=== PATIENT | female | born 1965 | race African-American/Black ===

== ENCOUNTER 2017-02-16 03:55 | Inpatient (IN) | payer OTHER ==
--- NOTE | 2017-02-02 13:10 | History & Physical Pre-Op ---
General Information and [facility] MD Statement: I have seen and personally examined HARLEY LOONEY and documented this H&P. The patient is a 51 year old F who presents with a patient stated chief complaint of slight low back pain radiating to her left calf and foot which she describes as a "strangulation/pressure" sensation. Source of Information: patient, old records Exam Limitations: no limitations History of Present Illness: Harley is a 51-year-old female who is complaining of slight low back pain radiating to her left calf and left foot which she describes as a "strangulation /pressure" sensation. She does admit to the low back pain at the end of a long day and radiating leg pain that is worse with ambulation. She denies any right sided symptoms. She describes the symptoms as a 7/10 in intensity. She does admit to intermittent numbness in her left leg with questionable weakness. She denies any known injury or precipitating event but admits that it did begin around July, and has worsened since October,. Harley has reported atrophy of her left calf as well as pressure with bowel movements. Harley has tried chiropractic treatment, muscle relaxants, Voltaren, Arcoxia, narcotics, and physical therapy which have given her minimal and temporary symptom relief. Her MRI shows a large left L5-S1 disc extrusion with left S1 nerve root impingement. Because of Harley's worsening symptoms and failure to respond to conservative measures, she wants nothing more to do with nonsurgical treatment. She has been consented for a left L5-S1 microdiscectomy with possible local bone fusion on 02/16/2017. Allergies/Medications Allergies: Coded Allergies: No Known Allergies (02/02/17) Compliance With Home Meds: FAIR Past History Medical History Blood Transfusion Hx: Yes (10/2015) Neurological: dizziness EENT: NONE Cardiovascular: hypertension Respiratory: NONE Gastrointestinal: NONE Hepatic: NONE Renal: NONE Musculoskeletal: chronic back pain, disk herniation, degen joint disease, osteoarthritis, sciatica, spinal stenosis Psychiatric: NONE Endocrine: vitamin D deficiency Blood Disorders: anemia Cancer(s): NONE HAT BODY SORTER/Reproductive: fibroid, ovarian cysts, menorrhagia Other Medical Hx: frequent vasovagal/syncopal episodes. Surgical History Pertinent Surgical History: s/p uterine release, s/p sebaceous cyst removal from shoulder Past Family/Social History Family History Relations & Conditions if any FATHER (Diabetes MellitusHypertension). . MOTHER (ASCVD/myocarditis). , Age 50-60. SISTER (Anemia). Psychosocial History Where Do You Live? 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 Review of Systems Review of Systems: Remarkable for the above complaints. Medication List Current Psychiatric Med(s): Iron sulfate 3 mL day (stopped 3 weeks ago) B complex daily Arcoxia daily, stopped 02/02/2017. Stool softener when necessary Exam & Diagnostic Data Physical Exam: Height: 5 feet 3 inches Weight: 140 pounds Physical Exam General Appearance Alert, Oriented X3, Cooperative, No Acute Distress Skin No Rashes, No Breakdown, No Significant Lesion HEENT Atraumatic, PERRLA, EOMI, Mucous Membr. moist/pink Neck Supple, No JVD, No thryomegaly, +2 Carotid Pulse wo Bruit Lymphatic Cervical nl Cardiovascular Regular Rate, Normal S1, Normal S2, No Murmurs Lungs Clear to Auscultation Abdomen Normal Bowel Sounds, Soft, No Tenderness, No Hepatospenomegaly, No Masses Neurological weak left gastroc muscle, absent left Achilles reflex, positive straight leg raise on the left, +3/5 left EHL/Ant tib strength, +4/5 left plantar flexion Extremities No Clubbing, No Cyanosis, No Edema Vascular Normal Pulses Last 24 Hrs of Labs/Armen: Laboratory Tests 02/16/17 1234: Urine Test NEGATIVE Assessment/Plan Assessment/Plan: Assessment: 1. Large left L5-S1 disc extrusion with nerve impingement. 2. Anemia 3. Hypertension history 4. Status post blood transfusion October, 5. Vitamin D deficiency 6. History of fibroids 7. Status post sebaceous cyst removal from the shoulder 8. Status post uterine release 9. Postoperative nausea from anesthesia 10. History of vasovagal/syncopal episodes Plan: Harley is scheduled to undergo a left L5-S1 microdiscectomy with possible local bone graft fusion on 02/16/2017. We discussed the procedure in full detail. We also discussed the risks of surgery not to exclude , paralysis, infection, bleeding, continued pain, failure of the surgery, need for future surgery, DVT, vascular injury, CSF leak, etc., and given these risks, she still wishes to proceed. We discussed the pre-and postoperative course, follow-up care and instructions, and anticipated recovery. We will consider placing a scopolamine patch on her preoperatively in anticipation of postoperative nausea. We have sent Harley for preoperative clearance from her general practitioner. Any changes in this patient's plan is based on her outpatient clinical presentation. As Ranked By This Provider Problem List: 1. Anemia 2. Hypertension 3. Vitamin D deficiency 4. Uterine fibroid Attending MD Review Statement Attending Statement Attending MD Statement: examined this patient, discuss w/resident/PA/WASH TUB MACHINE OPERATOR, agreed w/resident/PA/WASH TUB MACHINE OPERATOR, reviewed images
--- NOTE | 2017-02-02 13:13 | History & Physical Pre-Op ---
General Information and HPI MD Statement: I have seen and personally examined HARLEY LOONEY and documented this H&P. The patient is a 51 year old F who presented with a patient stated chief complaint of slight low back pain radiating to her left calf and foot, describing it as a "strangulation/pressure" sensation. Source of Information: patient, old records Exam Limitations: no limitations History of Present Illness: Harley is a 51-year-old female who is complaining of slight low back pain radiating to her left calf and left foot which she describes as a "strangulation /pressure" sensation. She states it began in July, and has worsened since October,. She denies any known injury or precipitating event. She does admit to occasional numbness in her left leg with questionable weakness. She states the pain is worsened at the end of a long day. She also states it is worse with walking, rating it a 7/10 in intensity. Harley has tried chiropractic treatment, muscle relaxants, Voltaren, Arcoxia, narcotics, and physical therapy which have given her temporary and minimal symptom relief. Harley's MRI shows a large left L5-S1 disc extrusion with potential for left S1 nerve root impingement. Because of Harley'sworsening symptoms and failure to respond to conservative measures, she wants nothing more to do with nonsurgical treatment. She has been consented for a left L5-S1 microdiscectomy with possible local bone fusion on 02/16/2017. Allergies/Medications Allergies: Coded Allergies: No Known Allergies (02/02/17) Home Med list Acetaminophen (Tylenol) 325 MG TABLET 650 MG PO Q4P PRN TEMP > 101.5 Bisacodyl (Bisac-Evac) 10 MG SUPP.RECT 10 MG TX DAILY NEEDED PRN CONSTIPATION Calcium Carbonate 500 MG CALCIUM (1,250 MG) TABLET 600 MG PO BID [facility] Cholecalciferol (Vitamin D3) 1,000 UNIT TABLET 1,000 IU PO DAILY [facility] Docusate Sodium 100 MG CAPSULE 100 MG PO TID CONSTIPATION Ferrous Sulfate 325 MG (65 MG IRON) TABLET.DR 325 MG PO DAILY ANEMIA Magnesium Hydroxide (Milk Of Magnesia) 400 MG/5 ML ORAL.SUSP 30 ML PO Q8P PRN CONSTIPATION Multivitamin (One Daily Multivitamin) 1 EACH TABLET 1 TAB PO DAILY [facility] Oxycodone HCl/Acetaminophen (Percocet 5-325 MG Tablet) 5 MG-325 MG TABLET 1 TAB PO Q4P PRN PAIN SCALE 1-3 (MILD) 1-2 TABS PO Q 4-6 HOURS PRN PAIN
[~2017-02-16] VITALS: Ht 162.6 cm; Wt 65.8 kg
--- NOTE | 2017-02-16 19:04 | Operative Report ---
Operative/Inv Procedure Report Surgery Date: 02/16/17 Name of Procedure: Laminectomies L5 and S1 with discectomy neural lysis L5-S1 nerve roots use of fluoroscopy. Pre-Operative Diagnosis: HNP L5-S1 left Post-Operative Diagnosis: Same Estimated Blood Loss: scant Surgeon/Corporate Counsel: ESA AMOR,FILI Brannon M.D. Anesthesia: general endotracheal tube Operative/Procedure Note Note: After adequate general anesthesia was achieved the patient was log rolled into the prone position with all bony prominences padded. The back was sterilely prepped and draped. An incision was made between L5 and S1 and carried over the left side of the L5-S1 interval. A metallic optic was placed and fluoroscopy was used to identify surgical level. The lateral aspect of the ligamentum flavum was elevated with the pituitary Jonathan and removed with the scalpel and Kerrisons. The S1 nerve root was flattened and erythematous. There is a large herniation displacing the shoulder of the L5 nerve root. A neuro lysis of the L5 and S1 nerve roots were performed to remove the adherent disc material. The disc was easily removed including herniation and several loose fragments within the disc space. The wound was irrigated the S1 nerve root was markedly erythematous Gelfoam was laid over the laminotomy site the wound was again irrigated. A closure was performed with absorbable suture and the lumbodorsal fascia. The subcutaneous tissue was approximated with absorbable suture and the skin was closed with nylon. Sterile dressings were then applied and the patient was transferred to the stretcher.
--- NOTE | 2017-02-16 19:55 | Patient Discharge Instructions ---
Discharge Instructions General Discharge Information You were seen/treated for: HNP L5-S1 left side You had these procedures: L5-S1 laminectomy Watch for these problems: see preprinted sheet Diet Continue normal diet: Yes Acute Coronary Syndrome Inclusion Criteria At DC or during hospital stay patient has or had the following: ACS DIAGNOSIS No Discharge Core Measures Meds if any: Prescribed or Continued at Discharge Meds if any: NOT Prescribed or Continued at Discharge Congestive Heart Failure Inclusion Criteria At DC or during hospital stay patient has or had the following: CHF DIAGNOSIS No Discharge Core Measures Meds if any: Prescribed or Continued at Discharge Meds if any: NOT Prescribed or Continued at Discharge Cerebrovascular accident Inclusion Criteria At DC or during hospital stay patient has or had the following: CVA/TIA Diagnosis No Discharge Core Measures Meds if any: Prescribed or Continued at Discharge Meds if any: NOT Prescribed or Continued at Discharge Venous thromboembolism Inclusion Criteria VTE Diagnosis No VTE Type NONE VTE Confirmed by (Test) NONE Discharge Core Measures - Per Current guidelines, there needs to be overlap - treatment for the first 5 days of Warfarin therapy. - If discharged on Warfarin prior to 5 days of - overlap therapy, the patient will need to be - assessed for post discharge needs including - *Post discharge parental anticoagulation - *Warfarin and/or parental anticoagulation education - *Follow up date to check INR post discharge At least 5 days overlap therapy as Inpatient No Meds if any: Prescribed or Continued at Discharge Note: Overlap Therapy is Warfarin and Anticoagulant Meds if any: NOT Prescribed or Continued at Discharge
[2017-02-16] MEDS ORDERED: PERCOCET 5-3251 EACH PO (19:58)
[2017-02-16 21:00] VITALS: BP 148/66
--- NOTE | 2017-02-16 22:00 | NUR ---
PT A&Ox3, PAIN 03/07, VSS. LR @ 100 RUNNING FROM PACU. LOWER MIDDLE BACK DSG IS DCI. FAMILY AT BEDSIDE. ALPS ON, PT REFUSED ANY PAIN MEDICATIONS AT THIS TIME. CMS-NORMAL. WILL CONTINUE TO MONITOR THIS SHIFT.
--- NOTE | 2017-02-16 22:33 | RADIOLOGY REPORT ---
EXAMINATION: INTRAOPERATIVE FLUOROSCOPIC GUIDANCE AND LUMBAR SPINE CLINICAL INFORMATION: Laminectomy. COMPARISON: None. TECHNIQUE: Fluoroscopic time was utilized in the OR for Dr. Dixon. Fluoroscopic images were obtained in the lateral projection. FINDINGS: A lateral view of the lumbar spine is provided with a marker identified posterior to the L4/L5 space. FLUOROSCOPY TIME: Less than 1 second of fluoroscopic time was utilized for the entirety of this examination. IMPRESSION: Marker identified posterior to the L4/L5 disc space.
[2017-02-16 22:55] VITALS: BP 140/64
[2017-02-17 07:23] VITALS: BP 132/76
--- NOTE | 2017-02-17 11:57 | PN- General Surgery ---
Subjective Subjective: States her back is still hurting. Took 1 Percocet half hour ago, reluctant to take more narcotics in fear of constipation Ambualted with assisstance of 1 and RW to bathroom Appetite not great but taking PO fluids Objective Vital Signs and I&Os Vital Signs Date Time Temp Pulse Resp B/P Pulse O2 O2 Flow FiO2 Ox Delivery Rate 02/17 07 99.4 86 20 132/76 100 Room Air 02/17 0000 98 Room Air 02/16 2255 98.1 109 20 140/64 98 Room Air 02/16 2113 Room Air 02/16 2100 97.6 102 18 148/66 Room Air Intake & Output 02/17 1600 02/17 0800 02/17 0000 02/16 1600 02/16 0800 02/16 0000 Intake Total 900 440 Output Total 900 Balance 0 440 Intake, IV 800 200 Intake, Oral 100 240 Number 0 Bowel Movements Output, Urine 900 Patient 145 lb Weight Alert, appropriate , no distress Lungs clear bilat Heart regular Abdomen soft Back with dry dressing over lower back. No hematoma, no bruising, no erythrema. Tender to touch Bilat. LE with full ROM, well perfused distally Neuro without focal deficits. Assessment/Plan Assessment/Plan s/p microdiscectomy L5S1 for HNP Stable hemodynamics No neurological deficits Still has fair amounts of pain . I encouraged additional Percocet if no relief . Ambulate as tolerated, needs to increase mobility Taking adequate PO fluids, will d/c IVF Anticipated discharge likely tomorrow Core Measures/Miscellaneous Venous Thromboembolism VTE Risk Factors: Age > 40 VTE Contraindications: No Contraindications VTE Diagnosis: No Beta Pavan Is Beta Pavan a Home Med? No Antibiotics Is Patient on Antibiotics? No
[2017-02-17 14:57] VITALS: BP 142/84
--- NOTE | 2017-02-17 15:53 | PN- Orthopedic ---
Subjective Subjective: Patient is c/o expected postop incisional pain only. No preop leg pain. No numbness/tingling. Resolved weakness. No N/V, SOB, CP, dizziness. She is tolerating Percocet and diet. Ambulated with PT. Review of Systems: Remarkable for the above complaints. Objective Vital Signs and I&Os Vital Signs Date Time Temp Pulse Resp B/P Pulse O2 O2 Flow FiO2 Ox Delivery Rate 02/17 1457 98.3 82 20 142/84 99 02/17 0723 99.4 86 20 132/76 100 Room Air 02/17 0000 98 Room Air 02/16 2255 98.1 109 20 140/64 98 Room Air 02/16 2113 Room Air 02/16 2100 97.6 102 18 148/66 Room Air Intake & Output 02/17 1600 02/17 0800 02/17 0000 02/16 1600 02/16 0800 02/16 0000 Intake Total 900 440 Output Total 900 Balance 0 440 Intake, IV 800 200 Intake, Oral 100 240 Number 0 Bowel Movements Output, Urine 900 Patient 145 lb Weight Physical Exam General Appearance: well developed/nourished, no apparent distress, alert, awake , mild distress Head: atraumatic, normal appearance Respiratory: normal breath sounds Cardiovascular: regular rate/rhythm Peripheral Pulses: 2+ tibialis posterior (R), 2+ tibialis posterior (L), 2+ dorsalis pedis (R), 2+ dorsalis pedis (L) Abdomen: normal bowel sounds, soft, non-tender Back: Incision C/D/I. Dressings changed. Extremities: normal inspection, normal capillary refill, no edema, Neurovascularly intact with no new or worsening gross motor or sensory loss. Improved strength in left LE. Neurologic/Psychiatric: no motor/sensory deficits Reflexes: 1+: ankle (L). 2+: knee (R), knee (L), ankle (R). Skin: intact, normal color, warm/dry Assessment/Plan Assessment/Plan Assessment: s/p left L5S1 Microdiscectomy Plan: Continue Percocet Ambulate with PT Do's and Dont's explained. Disch. Instr. given D/C ALPS/TEDS HLIV Will F/U in am. Plan D/C in am once cleared by PT Problem List: 1. Anemia 2. Hypertension 3. Vitamin D deficiency 4. Uterine fibroid Core Measures/Miscellaneous Venous Thromboembolism VTE Risk Factors: Age > 40 VTE Contraindications: No Contraindications VTE Diagnosis: No Beta Pavan Is Beta Pavan a Home Med? No Antibiotics Is Patient on Antibiotics? No Attending MD Review Statement Attending Statement Attending MD Statement: examined this patient, discuss w/resident/PA/MAINTENANCE CONTROLLER, agreed w/resident/PA/MAINTENANCE CONTROLLER
[2017-02-17 22:29] VITALS: BP 130/70
--- NOTE | 2017-02-18 06:58 | PN- Orthopedic ---
Subjective Subjective: POD #2 s/p L5-S1 microdiscectomy. Resting on her side in bed. Pain better controlled. Denies numbness or tingling of her lower extremities. Tolerating a regular diet. Voiding spontaneously. Objective Vital Signs and I&Os Vital Signs Date Time Temp Pulse Resp B/P Pulse O2 O2 Flow FiO2 Ox Delivery Rate 02/17 2229 98.9 77 20 130/70 97 Room Air 02/17 1457 98.3 82 20 142/84 99 02/17 0723 99.4 86 20 132/76 100 Room Air Intake & Output 02/18 0800 02/18 0000 02/17 1600 02/17 0800 02/17 0000 02/16 1600 Intake Total 200 480 710 900 440 Output Total 900 900 Balance 200 480 -190 0 440 Intake, IV 10 800 200 Intake, Oral 200 480 700 100 240 Number 0 Bowel Movements Output, Urine 900 900 Patient 145 lb Weight Physical Exam: Gen: AAOx3 in NAD Cor: S1+S2+ Lungs: CTA carmine Abd: soft, NT, ND, +Bs x4 Ext: dorsi and plantar flexion intact. Palpable DP pulses carmine. Feet warm. No gross sensory or motor deficit. Back: dressing changed. Incision C/D/I with suture. No surrounding erythema or drainage noted. Minimal tenderness to papation. Current Medications: Current Medications Sig/Candy Start time Last Medication Dose Route Stop Time Status Admin Acetaminophen 650 MG Q4P PRN 02/16 1945 AC PO Bisacodyl 10 MG DAILY NEEDED PRN 02/16 1945 AC AZ Calcium 600 MG BID 02/16 2200 AC 02/17 PO 2107 Cefazolin Sodium 1,000 MG IQ8 02/17 0000 DC 02/17 IV 02/17 1601 2108 Cholecalciferol 1,000 IU DAILY 02/17 1000 AC 02/17 PO 1103 Docusate Sodium 100 MG TID 02/16 2200 AC 02/17 PO 2108 Ferrous Sulfate 325 MG DAILY 02/17 1000 AC 02/17 PO 1103 Lactated Ringer's 1,000 ML Q10H 02/17 2000 DC 02/17 IV 0152 Magnesium Hydroxide 30 ML Q8P PRN 02/17 2000 AC PO Morphine Sulfate 2 MG Q3P PRN 02/16 1945 AC IV Multivitamins 1 TAB DAILY 02/17 1000 AC 02/17 PO 1103 Ondansetron HCl 4 MG Q6P PRN 02/16 1945 AC IV Oxycodone/ 1 TAB Q4P PRN 02/16 1945 AC 02/17 Acetaminophen PO 1743 Oxycodone/ 2 TAB Q4P PRN 02/16 1945 AC Acetaminophen PO Patient Medication 1 ED .STK-MED ONE 02/17 1346 DC Teaching ED 02/17 1347 Trimethobenzamide HCl 200 MG Q6P PRN 02/16 1945 AC IM Results Last 48 Hours of Labs: Laboratory Tests 02/16 1234 Urines Urine Test NEGATIVE Assessment/Plan Assessment/Plan A: POD #2 s/p L5-S1 microdiscectomy; AVSS. Plan: D/C home today. Core Measures/Miscellaneous Venous Thromboembolism VTE Risk Factors: Age > 40 VTE Contraindications: No Contraindications VTE Diagnosis: No Beta Pavan Is Beta Pavan a Home Med? No Antibiotics Is Patient on Antibiotics? No
--- NOTE | 2017-02-18 07:01 | Surg Short-stay <48hrs Dis Sum ---
See Addendum Visit Information Visit Dates Admission Date: 02/16/17 Discharge Date: 02/18/17 Surgical Short Stay DC Summary Admission Diagnosis: HNP L5-S1 left Final Diagnosis: HNP L5-S1 left Procedure(s): L5-S1 lumbar laminectomy with discectomy Summary/Significant Findings: Mrs. Funes is a 51 year old female found to have left sided HNP L5-S1. She was taken to the OR on 02/16/17 and underwent an L5-S1 lumbar laminectomy with discectomy. She tolerated the procedure well, transferring to the surgical floor when stable. Her diet was advanced and she was able to void spontaneously. She ambulated with physical therapy. On POD #2 her dressing was changed. She was stable for discharge home, with outpatient follow-up with Dr. Dixon as scheduled. Condition at Discharge: stable Discharge Disposition: home or self care Discharge instructions provided to patient/family: Yes Post discharge follow-up plan: Dr. Dixon
[2017-02-18 07:02] VITALS: BP 140/70
[2017-02-18] MEDS ORDERED: TYLENOL325 M1 PO (11:12)
[2017-02-18] MEDS ORDERED: CALCIUM CARBON500 M2 PO (11:13)
[2017-02-18] MEDS ORDERED: BISAC-EVAC10 M1 PR (11:13)
[2017-02-18] MEDS ORDERED: VITAMIN D31000 UNI2 PO (11:13)
[2017-02-18] MEDS ORDERED: MILK OF MA400 MG/52 PO (11:14)
[2017-02-18] MEDS ORDERED: DOCUSATE SODIU100 M3 PO (11:14)
[2017-02-18] MEDS ORDERED: FERROUS SULFAT325 M2 PO (11:14)
[2017-02-18] MEDS ORDERED: ONE DAILY MULT1 EAC2 PO (11:15)
== END 2017-02-18 13:34 | DRG 520 ==
LOC: ENRESERVDT → ENRESERVTM → ENPENDDIS 03:55 → SDA 03:55 → 2NA 20:32
PROVIDERS: ADMIT Orthopaedic Surgery Orthopaedic Surgery of the Spine
PROC: 0SB40ZZ Excision of Lumbosacral Disc, Open Approach (ICD-10-PCS; principal; 2017-02-16)
DX: M51.27 Other intervertebral disc displacement, lumbosacral region (principal); I10 Essential (primary) hypertension; E55.9 Vitamin D deficiency, unspecified; D64.9 Anemia, unspecified; D25.9 Leiomyoma of uterus, unspecified
CPT/HCPCS: 2NASP; 36415; 72100; 81025; 88304; 97116-GO; 97161-GP; 97530-GO; J0131; J0360; J0690; J1100; J2405; J3250; J3490; J7120